=== PATIENT | female | born 1960 | race Caucasian/White ===

== ENCOUNTER 2019-05-08 13:18 | Inpatient (IN) | payer MEDICARE ==
[~2019-05-08] VITALS: Ht 152.4 cm; Wt 80.5 kg
--- OUTSIDE RECORDS SUMMARY | 2019-05-08 13:20 | XMS REPORT | Summary of Care ---
Author Author [facility] - Health Organization [facility] - Health Address Unknown Phone Unavailable Care Team Providers Care Test Preparer Name Role Phone Jenn Loza MD PCP Reason for Visit * Reason Comments Refill Request Encounter Details Care Team Description Date Type Department Jenn Loza MD [address] [place] [id number] Refill Request 01/14/2019 Refill [facility], [address] 4[address] [place] [address] Allergies No Known Allergiesdocumented as of this encounter (statuses as of 01/14/2019) Medications End Date Status Medication Sig Dispensed Refills Start Date Active clopidogrel 75 mg tablet Take 75 mg by 1 mouth daily. 9 Active furosemide 40 mg tablet Take 40 mg by 0 mouth daily. Active sitaGLIPtin (JANUVIA) 100 Take 100 mg 0 mg tabletIndications: by mouth Type 2 diabetes mellitus daily. without complication, with long-term current use of insulin Active metformin ER 500 mg 24 hr Take 500 mg 0 tabletIndications: Type 2 by mouth diabetes mellitus without daily with complication, with breakfast. long-term current use of insulin Active cycloSPORINE (RESTASIS) Place 1 Drop 0 0.05 % drops in both eyes every 12 (twelve) hours. Active Insulin Glargine (LANTUS inject 32 0 SOLOSTAR U-100 INSULIN) Units under 100 unit/mL (3 mL) the skin 2 injectionIndications: (two) times Type 2 diabetes mellitus daily. without complication, with long-term current use of insulin Active insulin lispro, human, inject under 0 100 unit/mL the skin injectionIndications: before meals. Type 2 diabetes mellitus without complication, with long-term current use of insulin Active losartan 50 mg Take 1 tablet 90 tablet 1 tabletIndications: by mouth 9 Essential hypertension daily. Active KCL 10 mEq tablet TAKE 1 TABLET 60 tablet 1 BY MOUTH 9 TWICE A DAY WITH FOOD 01/14/2019 Discontinued KCL 10 mEq tablet Take 1 tablet 1 by mouth 9 daily. documented as of this encounter (statuses as of 01/14/2019) Active Problems Not on filedocumented as of this encounter (statuses as of 01/14/2019) Social History Date Tobacco Use Types Packs/Day Years Used Never Smoker Smokeless Tobacco: Never Used Sex Assigned at Date Recorded Not on file Industry Job Start Date Occupation Not on file Not on file Not on file Travel End Travel History Travel Start No recent travel history available. documented as of this encounter Last Filed Vital Signs Not on filedocumented in this encounter Plan of Treatment Health Maintenance Due Date Last Done Comments HEPATITIS C (HCV) SCREEN 1961 HgA1C 1962 PNEUMOCOCCAL 0-64 YEARS 1967 COMBINED SERIES (1 of 1 - PPSV23) CREATININE (SERUM) 1971 EYE EXAM 1971 LDL-C 1971 URINE MICROALBUMIN 1971 FOOT EXAM 1979 DTaP,Tdap,and Td Vaccines 02/16/1980 (1 - Tdap) PAP SMEAR 1982 MAMMOGRAM 2001 COLONOSCOPY 2011 Zoster Recombinant 2011 Vaccine (SHINGRIX) (1 of 2) INFLUENZA VACCINE (#1) 2019 documented as of this encounter Results Not on filedocumented in this encounter Insurance Type Payer Benefit Subscriber ID Effective Phone Address Plan / Dates Group Medicare MEDICARE MEDICARE xxxxxxxxxxx 2018-P [phone] [address] [id number] [place] [id number] documented as of this encounter
--- OUTSIDE RECORDS SUMMARY | 2019-05-08 13:21 | XMS REPORT ---
Author Author [facility] Address Unknown Phone Unavailable Care Team Providers Care Setter Machine Name Role Phone Unavailable Unavailable Problems This patient has no known problems. Allergies, Adverse Reactions, Alerts This patient has no known allergies or adverse reactions. Medications This patient has no known medications.
--- OUTSIDE RECORDS SUMMARY | 2019-05-08 13:21 | XMS REPORT | Summary of Care ---
Author Author [facility] - Health Organization [facility] - Health Address Unknown Phone Unavailable Care Team Providers Care Shop Foreman Name Role Phone Jenn Loza MD PCP Reason for Visit * Reason Comments Refill Request Encounter Details Care Team Description Date Type Department Jenn Loza MD [address] [place] [id number] Refill Request 02/07/2019 Refill [facility], [address] [place] [address] Allergies No Known Allergiesdocumented as of this encounter (statuses as of 02/08/2019) Medications End Date Status Medication Sig Dispensed [...] mEq tablet TAKE 1 TABLET 60 tablet 3 BY MOUTH 9 TWICE A DAY WITH FOOD 02/07/2019 Discontinued KCL 10 mEq tablet TAKE 1 TABLET 60 tablet 1 BY MOUTH 9 TWICE A DAY WITH FOOD documented as of this encounter (statuses as of 02/08/2019) Active Problems Not on filedocumented as of this encounter (statuses as of 02/08/2019) Social History Date Tobacco Use Types Packs/Day [...] Dates Group Medicare MEDICARE MEDICARE xxxxxxxxxxx 2018-P [phone] [address] resent [id number] [place] [id number] documented as of this encounter
[2019-05-08] MEDS ORDERED: SODIUM CHLORIDE 0.9% 1000ML 1,000 ML IV STA (15:12)
[2019-05-08] MEDS ORDERED: ONDANSETRON HCL INJ 2MG/ML 2ML 2 MG/ML VIAL IV ONE (16:00)
[2019-05-08] MEDS ORDERED: PANTOPRAZOLE 40 MG 10ML VIAL IV ONE (16:00)
[2019-05-08 16:03] LABS: BASOPHILS % 0.5 % (0.0-1.0); EOSINOPHILS % 0.2 % (0.0-6.0); HEMATOCRIT 40.2 % (34.2-44.1); HEMOGLOBIN 12.8 g/dL (12.0-16.0); LYMPHOCYTES # (AUTO) 1.5 (1.0-3.2); LYMPHOCYTES % 16.9 % (18.0-39.1); MEAN CORPUSCULAR HEMOGLOBIN 24.4 pg (28-32); MEAN CORPUSCULAR HGB CONC 31.8 g/dL (31-35); MEAN CORPUSCULAR VOLUME 76.7 fL (81-99); MONOCYTES # (AUTO) 1.1 (0.2-0.8); MONOCYTES % 13.1 % (4.4-11.3); NEUTROPHILS # (AUTO) 5.9 (2.1-6.9); NEUTROPHILS % 68.1 % (38.7-80.0); PLATELET COUNT 358 x10e3/uL (140-360); RED BLOOD COUNT 5.24 x10e6/uL (3.6-5.1); RED CELL DISTRIBUTION WIDTH 14.9 % (11.7-14.4)
[2019-05-08 16:19] LABS: BILIRUBIN,URINE NEGATIVE (NEGATIVE); CLARITY,URINE HAZY (CLEAR); COLOR,URINE YELLOW (YELLOW); KETONES,URINE 2+ (NEGATIVE); LEUKOCYTE ESTERASE ,URINE NEGATIVE (NEGATIVE); NITRITE,URINE NEGATIVE (NEGATIVE); PROTEIN,URINE DIPSTICK 1+ (NEGATIVE); URINE UROBILINOGEN 0.2 mg/dL (0.2 - 1)
--- NOTE | 2019-05-08 16:21 | Diagnostic Imaging Report ---
EXAMINATION: CHEST 2 VIEWS INDICATION: N/V, cough, flu, new onset atrial fibrillation. COMPARISON: None FINDINGS: TUBES and LINES: None. LUNGS: Lungs are moderately inflated. There is bronchial wall thickening. Patchy opacities in the lower lungs, right greater than left. PLEURA: No pleural effusion or pneumothorax. HEART AND MEDIASTINUM: The cardiomediastinal silhouette is unremarkable. There are atherosclerotic calcifications within the aorta. BONES AND SOFT TISSUES: No acute osseous lesion. Soft tissues are unremarkable. UPPER ABDOMEN: No free air under the diaphragm. IMPRESSION: Bronchial wall thickening, which may reflect bronchitis. Patchy opacities in the lower lungs, right greater than left, which may represent pneumonia or atelectasis in the appropriate clinical setting. Suggest follow-up chest radiograph in 6-8 weeks to assess for resolution. Signed by: Dr. Camilla Ramos MD on 05/08/2019 4:18 PM
[2019-05-08 16:22] LABS: INR 0.95; PROTHROMBIN TIME 13.2 seconds (11.9-14.5)
[2019-05-08 16:23] LABS: PARTIAL THROMBOPLASTIN TIME 26.2 seconds (23.8-35.5)
[2019-05-08 16:25] LABS: BACTERIA,URINE FEW /HPF; EPITHELIAL CELLS,URINE MODERATE /LPF; RBC,URINE 0-5 /HPF (0-5); WBC,URINE (MAN) 0-5 /HPF (0-5)
[2019-05-08 16:33] LABS: ALBUMIN 2.8 g/dL (3.5-5.0); ALBUMIN/GLOBULIN RATIO 0.6 (0.8-2.0); ANION GAP 15.2 mmol/L (8-16); CALCIUM 9.1 mg/dL (8.4-10.2); CREATININE, SERUM 1.03 mg/dL (0.57-1.11); MAGNESIUM 2.3 MG/DL (1.3-2.1); POTASSIUM 3.2 mmol/L (3.5-5.1)
[2019-05-08 16:54] LABS: CREATINE KINASE MB 2.8 ng/mL (0-5.0); THYROID STIMULATING HORMONE 0.862 uIU/mL (0.350-4.940)
[2019-05-08] MEDS: CEFTRIAXONE SOD 1 GM/NS 50 ML 50 ML IV SCH (16:58)
[2019-05-08] MEDS: AZITHROMYCIN 500MG/NS 250 ML 250 ML IV SCH (17:03)
[2019-05-08] MEDS: ENOXAPARIN SODIUM INJ 100 MG/ML SYR SC SCH (17:10)
[2019-05-08] MEDS ORDERED: ONDANSETRON HCL INJ 2MG/ML 2ML 2 MG/ML VIAL IV PRN (17:15)
[2019-05-08] MEDS ORDERED: PROMETHAZINE HCL (IM) 25 MG/ML VIAL IV PRN (17:15)
[2019-05-08] MEDS: POTASSIUM CHLORIDE 10MEQ/100ML 100 ML IV SCH ×3 (17:20→21:14)
[2019-05-08 18:28] VITALS: BP 162/72
[2019-05-08 18:36] VITALS: BP 162/72
[2019-05-08 18:37] VITALS: BP 162/72
[2019-05-08] MEDS ORDERED: LANTUS 3ML100 UNITS/ SQ ×2 (18:40)
[2019-05-08] MEDS ORDERED: FUROSEMIDE40 MG PO (18:41)
[2019-05-08] MEDS ORDERED: POTASSIUM CHLO10 ME1 PO (18:41)
[2019-05-08] MEDS ORDERED: LOSARTAN POTASS25 MG PO (18:42)
[2019-05-08] MEDS ORDERED: PLAVIX75 MG PO (18:42)
[2019-05-08] MEDS ORDERED: JANUVIA100 MG PO (18:43)
[2019-05-08] MEDS ORDERED: ASPIR 8181 MG PO (18:43)
[2019-05-08] MEDS ORDERED: METFORMIN HCL500 M2 PO (18:43)
[2019-05-08 19:13] LABS: CREATINE KINASE MB 2.8 ng/mL (0-5.0)
[2019-05-08 20:13] VITALS: BP 166/75
[2019-05-08 21:00] VITALS: BP 166/75
[2019-05-08] MEDS: KCL 20MEQ/.9 SOD CHL 1,000 ML IV SCH (21:13)
[2019-05-09] VITALS (8 sets, daily range): BP systolic 114–163; BP diastolic 60–91
[2019-05-09 02:01] LABS: CREATINE KINASE MB 1.6 ng/mL (0-5.0)
[2019-05-09] MEDS: POTASSIUM CHLORIDE 10MEQ/100ML 100 ML IV SCH (04:25)
[2019-05-09] MEDS: ENOXAPARIN SODIUM INJ 100 MG/ML SYR SC SCH ×2 (04:32→18:19)
[2019-05-09 05:24] LABS: BASOPHILS # (AUTO) 0.1 (0.0-0.1); EOSINOPHILS # (AUTO) 0.1 (0.0-0.4); EOSINOPHILS % 1.4 % (0.0-6.0); HEMATOCRIT 33.6 % (34.2-44.1); HEMOGLOBIN 10.4 g/dL (12.0-16.0); LYMPHOCYTES # (AUTO) 1.9 (1.0-3.2); LYMPHOCYTES % 27.4 % (18.0-39.1); MEAN CORPUSCULAR HEMOGLOBIN 24.5 pg (28-32); MEAN CORPUSCULAR VOLUME 79.1 fL (81-99); MONOCYTES # (AUTO) 1.2 (0.2-0.8); MONOCYTES % 17.8 % (4.4-11.3); NEUTROPHILS # (AUTO) 3.6 (2.1-6.9); NEUTROPHILS % 51.1 % (38.7-80.0); PLATELET COUNT 300 x10e3/uL (140-360); RED BLOOD COUNT 4.25 x10e6/uL (3.6-5.1); RED CELL DISTRIBUTION WIDTH 15.3 % (11.7-14.4)
[2019-05-09 05:51] LABS: ALANINE AMINOTRANSFERASE 24 IU/L (0-55); ALBUMIN 2.2 g/dL (3.5-5.0); ALBUMIN/GLOBULIN RATIO 0.6 (0.8-2.0); ALKALINE PHOSPHATASE 90 IU/L (40-150); ANION GAP 14.3 mmol/L (8-16); BLOOD UREA NITROGEN 10 mg/dL (7-26); BUN/CREATININE RATIO 13 (6-25); CARBON DIOXIDE 21 mmol/L (22-29); CHLORIDE 112 mmol/L (98-107); CHOL/HDL RATIO 4.1 (3.0-3.6); CHOLESTEROL 91 MD/DL (0-199); CREATININE, SERUM 0.79 mg/dL (0.57-1.11); EST GLOMERULAR FILTRATION RATE > 60 ML/MIN (60-); GLUCOSE 98 mg/dL (74-118); HDL CHOLESTEROL 22 MG/DL (40-60); LDL CHOLESTEROL 53 MG/DL (60-130); POTASSIUM 4.3 mmol/L (3.5-5.1); SODIUM 143 mmol/L (136-145); TRIGLYCERIDES 81 MG/DL (0-149)
[2019-05-09 06:03] LABS: CREATINE KINASE MB 1.5 ng/mL (0-5.0)
--- NOTE | 2019-05-09 06:49 | NUR ---
report given to morning nurse. patient is resting comfortably in bed. bed is in lowest position and call villar is within reach. will continue to monitor patient.
--- NOTE | 2019-05-09 07:44 | Diagnostic Imaging Report ---
EXAMINATION: CHEST SINGLE (PORTABLE) COMPARISON: Chest x-ray 05/08/2019 INDICATION: ^PNEUMONIA ^[id number] ^[id number] DISCUSSION: Frontal view of the chest obtained at 0703 hours. HEART AND MEDIASTINUM: The cardiomediastinal silhouette is unremarkable. LINES: None. LUNGS: Increasing bibasilar airspace opacities, right greater than left. No pneumonia or pulmonary edema. PLEURA: No pleural effusion or pneumothorax. BONES AND SOFT TISSUES: No focal osseous lesion. The soft tissues are normal. IMPRESSION: Increasing bibasilar airspace opacities, particularly in the right lung. Pneumonia cannot be excluded Signed by: Dr. Ketan Johnson MD on 05/09/2019 7:40 AM
[2019-05-09] MEDS: KCL 20MEQ/.9 SOD CHL 1,000 ML IV SCH (07:52)
[2019-05-09] MEDS: METOPROLOL TARTRATE 25 MG TAB PO SCH ×2 (15:22→18:19)
[2019-05-09] MEDS: CEFTRIAXONE SOD 1 GM/NS 50 ML 50 ML IV SCH (16:31)
[2019-05-09] MEDS ORDERED: HYDRALAZINE HCL 20 MG/ML VIAL IV PRN (18:00)
[2019-05-09] MEDS: AZITHROMYCIN 500MG/NS 250 ML 250 ML IV SCH (18:18)
--- NOTE | 2019-05-09 19:05 | NUR ---
Received report from day nurse. Patient is resting comfortably in bed. Bed is in lowest position and call villar is within reach. Will continue to monitor patient.
--- NOTE | 2019-05-09 19:50 | Consultation ---
DATE OF CONSULTATION: 05/09/2019 Cardiology Consultation Thank you so much for asking me to see this nice lady in consultation. Ms. Garcia is a pleasant 59-year-old woman, diabetic, sent to the emergency room with continued cough, dyspnea, nausea, and vomiting. HISTORY OF PRESENT ILLNESS: The patient reports she has been ill for 10-14 days with cough and sputum and when she visited her doctor they thought maybe she had atrial fibrillation. They did a nasal swab suggests that she had influenza. She was sent to the emergency room. PAST MEDICAL HISTORY: Significant for diabetes. She is disabled by problems with her legs. She has had surgical debridement of toes and evidently neuropathy. She has a past history of hypertension, diabetes, and possibly previous TIA. She denies knowledge of any cardiac history. She had a remote appendectomy and hernia repair. PERSONAL AND SOCIAL HISTORY: She does not smoke or drink. PHYSICAL EXAMINATION: GENERAL: At this time shows a pleasant, alert woman, who is talkative, oriented. VITAL SIGNS: Blood pressure 158/60, pulse is 80 and regular. HEAD, EYES, EARS, NOSE, AND THROAT: Unremarkable. NECK: No jugular venous distention. THORAX: Heart sounds S1, S2 are equal. No murmurs. There are prematures. ABDOMEN: Normal bowel sounds. EXTREMITIES: No cyanosis, clubbing, or edema. LABORATORY DATA: EKG shows sinus rhythm with PACs and PVCs. Telemetry also shows sinus rhythm with PACs and PVCs. PERTINENT LABORATORY STUDIES: Hemoglobin 12.8 on presentation. Troponins are normal. Chest x-ray suggests possible pneumonia. ASSESSMENT: 1. Pneumonia. 2. Possible influenza. 3. Sinus rhythm with premature atrial contractions and premature ventricular contractions. 4. Diabetes. 5. Hypertension. PLAN: Plan is to just we add a beta mary and we will review echo and maintain telemetry. We will follow closely with you. Thank you for asking me to see her in consultation. MD LAMBERTO Bruner/BERNARD /[id number]
--- NOTE | 2019-05-09 20:20 | Consultation ---
DATE OF CONSULTATION: Cardiology Consultation REASON FOR CONSULTATION: Atrial fibrillation. HISTORY OF PRESENT ILLNESS: This is a 59-year-old woman with a history of diabetes mellitus, hypertension, transient ischemic attack, on Plavix, and possible coronary artery disease, who presented to the emergency department with generalized fatigue and weakness. The patient also was noted to have nausea and vomiting with abdominal discomfort. She was diagnosed with the flu by her PCP and was initiated on treatment. Upon arrival here, she was noted to be in atrial fibrillation with controlled ventricular response. Chest x-ray at that time also showed pneumonia. REVIEW OF SYSTEMS: A 12-point review of systems was conducted, is negative except as stated above in the HPI. PAST MEDICAL HISTORY: As stated above in the HPI. PAST SURGICAL HISTORY: None recent. PAST FAMILY HISTORY: Noncontributory. ALLERGIES: NO KNOWN DRUG ALLERGIES. SOCIAL HISTORY: No illicit drug, alcohol, or tobacco use. MEDICATIONS: See medication reconciliation form . PHYSICAL EXAMINATION: VITAL SIGNS: Temperature is 97.7, heart rate 63, respirations are 20, blood pressure is 162/67, and oxygen saturation is 96% on room air. GENERAL: Well appearing, in no apparent distress. Alert and oriented x3. HEAD: Normocephalic, atraumatic. EYES: Extraocular muscles are intact. Conjunctivae clear. NECK: No JVD. No bruits. CARDIOVASCULAR: She is irregularly irregular. Normal rate. No murmurs. LUNGS: Diminished breath sounds at bases. ABDOMEN: Soft, nontender, nondistended. EXTREMITIES: No clubbing, cyanosis, or edema. VASCULAR: 2+ pulses. SKIN: Warm, dry, and intact. NEUROLOGIC: No focal deficits noted. Cranial nerves grossly intact. PSYCHIATRIC: Normal mood and affect. LABORATORY DATA: Reviewed. Hemoglobin is 10.4, platelets are 300. Creatinine is 0.79. Troponins negative x4. Potassium 4.3, however, was 3.2 on arrival. A 12-lead electrocardiogram showed atrial fibrillation. TELEMETRY: Monitoring reveals atrial fibrillation with controlled ventricular response. IMPRESSION: 1. Atrial fibrillation. 2. Hypertension. 3. Diabetes mellitus. 4. History of transient ischemic attack. 5. Pneumonia. 6. Influenza. RECOMMENDATIONS: The patient has a CHADS-VASc score of 5 for female status, hypertension, diabetes mellitus, and history of transient ischemic attack. The patient started on Lovenox and can transition this to a novel oral anticoagulant such as Eliquis or Xarelto at the time of discharge. Continue infectious treatment per primary team. Resume antihypertensives and check a 2D echocardiogram. DO BOBBY Vick/BERNARD /[id number]
[2019-05-10] VITALS (9 sets, daily range): BP systolic 139–192; BP diastolic 61–93
[2019-05-10] MEDS: ENOXAPARIN SODIUM INJ 100 MG/ML SYR SC SCH ×2 (05:37→17:00)
[2019-05-10 05:45] LABS: BASOPHILS # (AUTO) 0.1 (0.0-0.1); BASOPHILS % 1.6 % (0.0-1.0); EOSINOPHILS # (AUTO) 0.2 (0.0-0.4); EOSINOPHILS % 2.6 % (0.0-6.0); HEMATOCRIT 34.7 % (34.2-44.1); HEMOGLOBIN 10.7 g/dL (12.0-16.0); LYMPHOCYTES # (AUTO) 1.9 (1.0-3.2); LYMPHOCYTES % 31.4 % (18.0-39.1); MEAN CORPUSCULAR HEMOGLOBIN 24.4 pg (28-32); MEAN CORPUSCULAR HGB CONC 30.8 g/dL (31-35); MONOCYTES % 16.3 % (4.4-11.3); NEUTROPHILS # (AUTO) 2.7 (2.1-6.9); NEUTROPHILS % 44.7 % (38.7-80.0); PLATELET COUNT 322 x10e3/uL (140-360); RED BLOOD COUNT 4.39 x10e6/uL (3.6-5.1); RED CELL DISTRIBUTION WIDTH 15.2 % (11.7-14.4)
[2019-05-10 06:04] LABS: ANION GAP 12.6 mmol/L (8-16); BLOOD UREA NITROGEN 10 mg/dL (7-26); BUN/CREATININE RATIO 13 (6-25); CARBON DIOXIDE 21 mmol/L (22-29); CHLORIDE 108 mmol/L (98-107); CREATININE, SERUM 0.78 mg/dL (0.57-1.11); EST GLOMERULAR FILTRATION RATE > 60 ML/MIN (60-); GLUCOSE 179 mg/dL (74-118); MAGNESIUM 2.1 MG/DL (1.3-2.1); PHOSPHORUS 1.9 MG/DL (2.3-4.7); POTASSIUM 3.6 mmol/L (3.5-5.1); SODIUM 138 mmol/L (136-145)
--- NOTE | 2019-05-10 06:18 | NUR ---
Dr Bettencourt notified of routine consultation.
--- NOTE | 2019-05-10 07:03 | NUR ---
report given to day nurse. patient is resting comfortably in bed. bed is in lowest position and call villar is within reach.
--- NOTE | 2019-05-10 07:05 | NUR ---
RCD PT AT BED PT IS ALERT AND ORIENTED PT RESTING ON BED NO SIGNS OF ANY DISTRESS NOTED IV PATENT BY SALINE FLUSH BED LOW AND LOCKED CALL LIGHT IN REACH
[2019-05-10] MEDS: FAMOTIDINE 20 MG TAB PO SCH ×2 (07:30→16:30)
[2019-05-10 08:51] LABS: EOSINOPHILS % (MANUAL) 6 % (0-7); LYMPHOCYTES % (MANUAL) 37 % (19-48); MONOCYTES % (MANUAL) 11 % (3.4-9.0); NEUTROPHILS % (MANUAL) 45 % (40-74)
[2019-05-10 08:57] LABS: PLATELET ESTIMATE ADEQUATE; PLATELET MORPHOLOGY COMMENT NORMAL; RBC MORPHOLOGY COMMENT NORMAL
[2019-05-10] MEDS: METOPROLOL TARTRATE 25 MG TAB PO SCH ×2 (09:00→17:00)
[2019-05-10] MEDS: CLOPIDOGREL BISULFATE 75 MG TAB PO SCH (09:00)
[2019-05-10] MEDS ORDERED: METFORMIN HCL 500 MG TAB CR PO SCH (09:00)
[2019-05-10] MEDS: LOSARTAN POTASSIUM 25 MG TAB PO SCH (09:00)
[2019-05-10] MEDS: POTASSIUM CHLORIDE 10MEQ EA PO SCH (09:00)
[2019-05-10] MEDS: ASPIRIN 81 MG CHEW TAB PO SCH (09:00)
[2019-05-10] MEDS: SITAGLIPTIN 100 MG TAB PO SCH (09:00)
[2019-05-10] MEDS: GUAIFENESIN 600MG/DEXTROMETHORPHAN 30MG TABSR PO SCH ×2 (11:30→20:54)
[2019-05-10] MEDS ORDERED: POTASSIUM PHOSPHATE 20 MM in SODIUM CHLORIDE 0.9% 250ML 250 ML IV ONE (11:45)
[2019-05-10] MEDS: ALBUTEROL/IPRATROPIUM 3 ML NEB NEB SCH ×2 (14:35→19:00)
--- NOTE | 2019-05-10 16:32 | Consultation ---
DATE OF CONSULTATION: Pulmonary Critical Care Consultation CHIEF COMPLAINT: Cough, congestion, and pulmonary infiltrate. HISTORY OF PRESENT ILLNESS: The patient is a 59-year-old woman. She has a history of diabetes and hypertension. She has noted persistent cough over the past several weeks. Her cough was productive of small amounts of phlegm. She went to see a primary physician and was diagnosed with the flu. She received treatment, but did not improve. She subsequently came to the emergency department. She has since received antibiotics and bronchodilators and feels better. PAST SURGICAL HISTORY: 1. Status post appendectomy. 2. Status post inguinal hernia repair. PAST MEDICAL HISTORY: 1. Hypertension. 2. Diabetes. SOCIAL HISTORY: The patient has never been a smoker. She is not a drinker. She has no recent travel. ALLERGIES: THERE ARE NO KNOWN DRUG ALLERGIES. FAMILY HISTORY: Family history is noncontributory. REVIEW OF SYSTEMS: The patient is afebrile. She may have had some fevers previously. She has no headache. She has no neck pain. She does have some cough. She has no chest pain. She has no wheezing. She has no abdominal pain. She has some vomiting. She has no leg edema. She has no focal neurological complaints. PHYSICAL EXAMINATION: VITAL SIGNS: The patient is afebrile. The blood pressure is 174/93. The pulse is 62 and the saturation is 98%. HEENT: Shows no facial swelling or erythema. CARDIAC: Reveals regular rate and rhythm with normal S1 and S2. There are no murmurs or rubs. LUNGS: Auscultation of lungs shows clear breath sounds bilaterally. There is no wheezing. ABDOMEN: Soft and nontender. There is no rebound or guarding. EXTREMITIES: Shows no leg edema or calf tenderness. There is no cyanosis or clubbing. SKIN: Shows no rashes. NEUROLOGICAL: Shows no focal abnormalities. LABORATORY DATA: White blood cell count is 6.09 and hemoglobin is 10.7. The platelet count is 322. BUN to creatinine ratio is 10 to 0.78. Other electrolytes are within normal limits. RADIOGRAPHIC DATA: Chest x-ray shows bibasilar airspace opacities. IMPRESSION: 1. Community-acquired pneumonia. 2. Hypertension. 3. Diabetes. 4. Atrial fibrillation. PLAN: 1. Continue Rocephin and Zithromax. 2. CT scan of chest. 3. Await further evaluation by Cardiology. MD ALIYA Brennan/BERNARD /[id number]
[2019-05-10] MEDS: CEFTRIAXONE SOD 1 GM/NS 50 ML 50 ML IV SCH (17:00)
[2019-05-10] MEDS: AZITHROMYCIN 500MG/NS 250 ML 250 ML IV SCH (17:00)
--- NOTE | 2019-05-10 17:50 | Diagnostic Imaging Report ---
CT of the chest, with contrast History: Pneumonia. Comparison: Chest radiographs dated 05/08/2019 and 05/09/2019. Technique: Multidetector CT scanning of the chest was performed from the level of the thoracic inlet to the upper abdomen with IV contrast Dose reduction: The examination was performed according to departmental dose-optimization program which includes automated exposure control, adjustment of the mA and/or kV according to patient size and/or use of iterative reconstruction technique. Findings: The visualized portions of the thyroid gland are within normal limits. There is no axillary the heart is within normal limits of size. Coronary artery calcifications are noted. There is no pericardial effusion. Thoracic aorta is of normal course and caliber. The trachea and central airways are patent. The pulmonary artery is normal caliber. While this study is not tailored for the detection of pulmonary embolism no filling defects are identified to suggest acute pulmonary embolus. Patchy areas of consolidation are present in both lungs and are most pronounced in the right lower lobe. Findings are concerning for multifocal pneumonia. There is no evidence of cavitation. There is no pleural effusion. There is no pneumothorax. Limited evaluation of the upper abdomen demonstrates no hepatic lesions in the visualized portions of the liver. The spleen is within normal limits. The bilateral adrenal glands are unremarkable. No acute osseous abnormalities are identified. IMPRESSION: Patchy opacities throughout both lungs which are most pronounced in the right lower lobe. Findings are concerning for multifocal pneumonia. Recommend follow-up CT after course of treatment to document resolution. Signed by: Marcio Ramirez MD on 05/10/2019 5:46 PM
--- NOTE | 2019-05-10 19:00 | NUR ---
PT RESTING ON BED BED SIDE REPORT GIVEN TO ONCOMING NURSE
--- NOTE | 2019-05-10 19:05 | NUR ---
Nutrition Screen Note RD Recommendation for Physician: -Continue ADA diet Plan of Care: RD following, monitoring for tolerance and adequacy Nutrition reason for involvement: MST Primary Diagnose(s): dehydration, hypokalemia, new onset atrial fibrillation, pneumonia, and vomiting PMH: diabetes, HTN, TIA, and possible CAD Ht: 60 in Wt:177.5 lb BMI: 34.7 kg/m2 IBW: [address] Assessment: (05/10/19) Chart reviewed. Labs and meds reviewed. Pt is a 59 year old female admitted with dehydration, hypokalemia, new onset atrial fibrillation, pneumonia, and vomiting. Pt stated her appetite has been good and eating >50% of meals during admission. Prior to admission, pt reported a decreased appetite for 1 week and was mainly consuming pudding. Pt reported she had weighed 182 lbs a week ago. Pt currently has a wt of 177 lbs in chart. If accurate, this would be a 3% wt loss in 1 week severe wt loss. No N/V/D/C or chewing/swallowing issues noted. Will continue to monitor. Current Diet: 1800 kcal ADA diet Malnutrition Evaluation (05/10/19) The patient does not meet criteria for a specified degree of malnutrition at this time. Will re-evaluate at follow-up as appropriate. Diet Education Needs Assessment: Pt was not interested in diet education at time of visit. Nutrition Care Level: low Signed: Yocasta Giraldo, RD, LD
--- NOTE | 2019-05-10 19:05 | NUR ---
Received patient awake on bed, not in distress, no complaints of pain at this time. Call light within easy reached, advised to call anytime as needed. Will continue to monitor
[2019-05-10] MEDS ORDERED: IOPAMIDOL 370 MG/ML 200 ML INFUS..BTL INJ ONE (19:55)
[2019-05-10] MEDS ORDERED: SODIUM CHLORIDE 0.9% 50ML 50 ML ONE (19:55)
[2019-05-11] VITALS (8 sets, daily range): BP systolic 148–174; BP diastolic 64–89
[2019-05-11] MEDS: ALBUTEROL/IPRATROPIUM 3 ML NEB NEB SCH ×4 (01:00→20:25)
[2019-05-11 03:41] LABS: BASOPHILS # (AUTO) 0.1 (0.0-0.1); BASOPHILS % 1.4 % (0.0-1.0); EOSINOPHILS # (AUTO) 0.2 (0.0-0.4); EOSINOPHILS % 2.7 % (0.0-6.0); HEMATOCRIT 35.1 % (34.2-44.1); HEMOGLOBIN 10.9 g/dL (12.0-16.0); LYMPHOCYTES # (AUTO) 2.2 (1.0-3.2); MEAN CORPUSCULAR HEMOGLOBIN 24.1 pg (28-32); MEAN CORPUSCULAR HGB CONC 31.1 g/dL (31-35); MEAN CORPUSCULAR VOLUME 77.5 fL (81-99); MONOCYTES # (AUTO) 1.1 (0.2-0.8); MONOCYTES % 14.1 % (4.4-11.3); NEUTROPHILS # (AUTO) 3.7 (2.1-6.9); NEUTROPHILS % 48.7 % (38.7-80.0); PLATELET COUNT 418 x10e3/uL (140-360); RED BLOOD COUNT 4.53 x10e6/uL (3.6-5.1); RED CELL DISTRIBUTION WIDTH 15.1 % (11.7-14.4)
[2019-05-11 04:08] LABS: ANION GAP 12.8 mmol/L (8-16); BLOOD UREA NITROGEN 8 mg/dL (7-26); BUN/CREATININE RATIO 10 (6-25); CALCIUM 8.3 mg/dL (8.4-10.2); CARBON DIOXIDE 21 mmol/L (22-29); CHLORIDE 110 mmol/L (98-107); CREATININE, SERUM 0.84 mg/dL (0.57-1.11); EST GLOMERULAR FILTRATION RATE > 60 ML/MIN (60-); GLUCOSE 222 mg/dL (74-118); PHOSPHORUS 2.4 MG/DL (2.3-4.7); POTASSIUM 3.8 mmol/L (3.5-5.1); SODIUM 140 mmol/L (136-145)
[2019-05-11] MEDS: ENOXAPARIN INJ 80 MG/0.8 ML SYR SC SCH ×2 (05:12→17:30)
[2019-05-11] MEDS ORDERED: MELATONIN 5 MG TABLET PO PRN (05:45)
[2019-05-11] MEDS ORDERED: ACETAMINOPHEN/CODEINE 300MG - 30MG TAB PO PRN (05:45)
[2019-05-11] MEDS ORDERED: ACETAMINOPHEN 325 MG TAB PO PRN (05:45)
[2019-05-11] MEDS: GUAIFENESIN/DEXTROMETHORPHAN LIQD 5 ML UDC PO SCH ×3 (05:56→18:00)
[2019-05-11] MEDS ORDERED: DEXTROSE 50% SYRINGE 50 ML IV PRN (08:15)
[2019-05-11] MEDS: METFORMIN HCL 500 MG TAB CR PO SCH (09:00)
[2019-05-11] MEDS: AMLODIPINE BESYLATE 10 MG TAB PO SCH ×2 (09:00→17:20)
[2019-05-11] MEDS: POTASSIUM CHLORIDE 10MEQ EA PO SCH (09:00)
[2019-05-11] MEDS: ASPIRIN 81 MG CHEW TAB PO SCH (09:00)
[2019-05-11] MEDS: SITAGLIPTIN 100 MG TAB PO SCH (09:00)
[2019-05-11] MEDS: CLOPIDOGREL BISULFATE 75 MG TAB PO SCH (09:00)
[2019-05-11] MEDS: FAMOTIDINE 20 MG TAB PO SCH ×2 (09:00→17:30)
[2019-05-11] MEDS: FUROSEMIDE 40 MG TAB PO SCH (09:00)
[2019-05-11] MEDS: LOSARTAN POTASSIUM 25 MG TAB PO SCH (09:00)
[2019-05-11] MEDS: METOPROLOL TARTRATE 25 MG TAB PO SCH (09:10)
[2019-05-11] MEDS: INSULIN GLARGINE 100 UNITS/ML VIAL SQ SCH ×2 (09:45→21:11)
[2019-05-11] MEDS: INSULIN REGULAR, HUMAN 100 UNIT/1 ML 3ML VIAL SQ SCH ×3 (11:30→21:09)
[2019-05-11] MEDS ORDERED: METOPROLOL TARTRATE 25 MG TAB PO NR (12:00)
[2019-05-11] MEDS ORDERED: METOPROLOL TARTRATE 25 MG TAB PO SCH (17:00)
[2019-05-11] MEDS: CEFTRIAXONE SOD 1 GM/NS 50 ML 50 ML IV SCH (17:30)
[2019-05-11] MEDS: METOPROLOL TARTRATE 50 MG TAB PO SCH (17:30)
[2019-05-11] MEDS: AZITHROMYCIN 500MG/NS 250 ML 250 ML IV SCH ×2 (18:17→18:27)
--- NOTE | 2019-05-11 18:34 | Progress Note ---
DATE: SUBJECTIVE: The patient is doing better. She does not complain of dyspnea or cough. PHYSICAL EXAMINATION: VITAL SIGNS: Stable. HEENT: Shows no facial swelling or erythema. CARDIAC: Reveals regular rate and rhythm with normal S1 and S2. There are no murmurs or rubs. LUNGS: Auscultation of lungs reveals clear breath sounds bilaterally. There is no wheezing. ABDOMEN: Soft and nontender. There is no rebound or guarding. EXTREMITIES: Shows no leg edema or calf tenderness. There is no cyanosis. IMPRESSION: 1. Community-acquired pneumonia. 2. Atrial fibrillation. 3. Hypertension. 4. Diabetes. PLAN: 1. Switch to p.o. antibiotics. 2. Monitor blood sugars closely. 3. Complete Cardiology evaluation. 4. Possible discharge home tomorrow. Mukund Bettencourt MD [facility]/BERNARD /[id number]
[2019-05-11] MEDS ORDERED: INSULIN GLARGINE SQ SCH (21:00)
[2019-05-12] VITALS: BP 139/87
[2019-05-12] MEDS: GUAIFENESIN/DEXTROMETHORPHAN LIQD 5 ML UDC PO SCH ×2 (00:25→05:19)
[2019-05-12] MEDS: ALBUTEROL/IPRATROPIUM 3 ML NEB NEB SCH ×2 (01:00→08:03)
[2019-05-12 02:51] LABS: BASOPHILS # (AUTO) 0.1 (0.0-0.1); BASOPHILS % 1.5 % (0.0-1.0); EOSINOPHILS # (AUTO) 0.3 (0.0-0.4); EOSINOPHILS % 3.4 % (0.0-6.0); HEMOGLOBIN 10.7 g/dL (12.0-16.0); LYMPHOCYTES # (AUTO) 2.6 (1.0-3.2); LYMPHOCYTES % 30.3 % (18.0-39.1); MEAN CORPUSCULAR HEMOGLOBIN 24.4 pg (28-32); MEAN CORPUSCULAR HGB CONC 31.5 g/dL (31-35); MEAN CORPUSCULAR VOLUME 77.4 fL (81-99); MONOCYTES # (AUTO) 1.2 (0.2-0.8); NEUTROPHILS % 45.4 % (38.7-80.0); PLATELET COUNT 447 x10e3/uL (140-360); RED BLOOD COUNT 4.39 x10e6/uL (3.6-5.1)
[2019-05-12 03:08] LABS: ANION GAP 12.4 mmol/L (8-16); BLOOD UREA NITROGEN 8 mg/dL (7-26); BUN/CREATININE RATIO 10 (6-25); CALCIUM 8.4 mg/dL (8.4-10.2); CARBON DIOXIDE 23 mmol/L (22-29); CHLORIDE 111 mmol/L (98-107); CREATININE, SERUM 0.78 mg/dL (0.57-1.11); EST GLOMERULAR FILTRATION RATE > 60 ML/MIN (60-); GLUCOSE 133 mg/dL (74-118); MAGNESIUM 2.1 MG/DL (1.3-2.1); POTASSIUM 3.4 mmol/L (3.5-5.1); SODIUM 143 mmol/L (136-145)
[2019-05-12 04:00] VITALS: BP 163/73
[2019-05-12] MEDS: ENOXAPARIN INJ 80 MG/0.8 ML SYR SC SCH (05:19)
[2019-05-12] MEDS ORDERED: POTASSIUM CHLORIDE 20 MEQ TAB CR PO STA (05:48)
[2019-05-12] MEDS ORDERED: ZITHROMAX500 MG PO (05:51)
[2019-05-12] MEDS ORDERED: METOPROLOL TART50 MG PO (05:51)
[2019-05-12] MEDS ORDERED: NORVASC10 MG PO (05:51)
[2019-05-12] MEDS ORDERED: CEFDINIR300 MG PO (05:51)
[2019-05-12] MEDS: INSULIN REGULAR, HUMAN 100 UNIT/1 ML 3ML VIAL SQ SCH (07:30)
--- NOTE | 2019-05-12 08:34 | NUR ---
IMM letter delivered and explained to pt. She verbalized understanding. States she's ready to go home. Signed copy placed in chart. Copy to pt. CM business card left with pt for any questions/concerns.
[2019-05-12 08:35] VITALS: BP 163/73
[2019-05-12] MEDS: FUROSEMIDE 40 MG TAB PO SCH (08:53)
[2019-05-12] MEDS: POTASSIUM CHLORIDE 10MEQ EA PO SCH (08:53)
[2019-05-12] MEDS: SITAGLIPTIN 100 MG TAB PO SCH (08:53)
[2019-05-12] MEDS: ASPIRIN 81 MG CHEW TAB PO SCH (08:53)
[2019-05-12] MEDS: METFORMIN HCL 500 MG TAB CR PO SCH (08:53)
[2019-05-12] MEDS: FAMOTIDINE 20 MG TAB PO SCH (08:53)
[2019-05-12] MEDS: LOSARTAN POTASSIUM 25 MG TAB PO SCH (08:53)
[2019-05-12] MEDS: METOPROLOL TARTRATE 50 MG TAB PO SCH (08:54)
[2019-05-12] MEDS: INSULIN GLARGINE 100 UNITS/ML VIAL SQ SCH (08:54)
[2019-05-12] MEDS: CLOPIDOGREL BISULFATE 75 MG TAB PO SCH (08:54)
[2019-05-12] MEDS: AMLODIPINE BESYLATE 10 MG TAB PO SCH (08:54)
[2019-05-12 09:00] VITALS: BP 168/72
[2019-05-12 09:55] VITALS: BP 168/72
--- NOTE | 2019-05-14 04:47 | Discharge Summary ---
ADMISSION DIAGNOSES: 1. Nausea and vomiting with dehydration. 2. Bacterial community-acquired pneumonia, present on admission. 3. New onset atrial fibrillation. 4. Hypokalemia. 5. Type 2 diabetes. 6. Hypertension. DISCHARGE DIAGNOSES: 1. Nausea and vomiting with dehydration. 2. Bacterial community-acquired pneumonia, present on admission. 3. New onset atrial fibrillation. 4. Hypokalemia. 5. Type 2 diabetes. 6. Hypertension. HISTORY: Hypertension, type 2 diabetes, CAD, and possible TIA. SURGICAL HISTORY: Appendectomy, inguinal hernia repair, and left foot pinky toe amputation. FAMILY HISTORY: The patient is unaware of family history, as she is adopted. SOCIAL HISTORY: Noncontributory. HOSPITAL COURSE: A 59-year-old female with bronchitis 3 weeks ago, which went away after Z-German, admits with a history of 5 days of nonproductive cough with nausea and vomiting. During the week, she has been unable to eat and drink. She denies bad food exposure or contact with sick individuals. On 05/03, she saw her PCP and was given amoxicillin after being positive for flu. On admission, she was started on IV fluids, Zithromax, and Rocephin. Chest x-ray showed bronchial wall thickening, which may reflect bronchitis. Patchy opacities in the lower lungs, right greater than left, which may represent pneumonia. CT of the chest showed patchy opacity throughout both lungs, which are most pronounced in the right lower lobe. Pulmonology was consulted as well as Cardiology. Her EKG in the ER appeared to be atrial fibrillation 82, but per Cardiology, he believes it was sinus rhythm with PACs and PVCs. The patient was started on metoprolol by another supervisor powdered sugar before her supervisor powdered sugar was consulted. Urine culture negative. Blood culture negative. TSH was within normal limits. After few days of IV antibiotics, the patient is feeling much better. She will discharge home with new prescription for Norvasc, metoprolol, Omnicef, and Zithromax. She was already taking aspirin at home and since her supervisor powdered sugar does not believe she had atrial fibrillation, there is no need for anticoagulation. The patient will discharge home and follow up with primary care in 1 to 2 weeks. Vital signs are stable. The patient is afebrile. Dictated by Deandra Medina NP MD AMBROSE Duong/BERNARD /[id number]
== END 2019-05-12 10:09 | disposition home or self-care (01) | DRG 194 ==
LOC: ER 13:18 → ERHOLD 17:15 → MED/SURG2 18:10
PROVIDERS: ADMIT Internal Medicine; ATTEND Internal Medicine
DX: J15.9 Unspecified bacterial pneumonia (principal); I50.22 Chronic systolic (congestive) heart failure; E11.9 Type 2 diabetes mellitus without complications; I48.91 Unspecified atrial fibrillation; E86.0 Dehydration; I49.3 Ventricular premature depolarization; Z86.73 Personal history of transient ischemic attack (TIA), and cerebral infarction without residual deficits; E83.39 Other disorders of phosphorus metabolism; E66.9 Obesity, unspecified; Z68.34 Body mass index [BMI] 34.0-34.9, adult; I11.0 Hypertensive heart disease with heart failure
CPT/HCPCS: 36415; 71045; 71046; 71260; 80048; 80053; 80061; 81001; 82550; 82553; 82948; 83036; 83735; 83880; 84100; 84443; 84484; 85025; 85610; 85730; 87040; 87086; 87400; 93005; 93306; 94640; 99284; J0360; J0456; J0696; J1650; J1815; J1817; J2405; J3480; J7030; J7050; Q9967

== ENCOUNTER → 2019-07-22 | Day surgery (SDC) | payer MEDICARE ==
[2019-07-19 16:29] LABS: BASOPHILS # (AUTO) 0.2 (0.0-0.1); BASOPHILS % 2.1 % (0.0-1.0); EOSINOPHILS # (AUTO) 0.7 (0.0-0.4); EOSINOPHILS % 7.5 % (0.0-6.0); HEMATOCRIT 36.4 % (34.2-44.1); HEMOGLOBIN 11.5 g/dL (12.0-16.0); LYMPHOCYTES # (AUTO) 2.8 (1.0-3.2); LYMPHOCYTES % 28.9 % (18.0-39.1); MEAN CORPUSCULAR HEMOGLOBIN 23.9 pg (28-32); MEAN CORPUSCULAR HGB CONC 31.6 g/dL (31-35); MEAN CORPUSCULAR VOLUME 75.7 fL (81-99); MONOCYTES # (AUTO) 1.1 (0.2-0.8); MONOCYTES % 11.6 % (4.4-11.3); NEUTROPHILS # (AUTO) 4.7 (2.1-6.9); NEUTROPHILS % 48.7 % (38.7-80.0); PLATELET COUNT 430 x10e3/uL (140-360); RED BLOOD COUNT 4.81 x10e6/uL (3.6-5.1); RED CELL DISTRIBUTION WIDTH 15.1 % (11.7-14.4)
[2019-07-19 16:47] LABS: INR 0.9; PROTHROMBIN TIME 12.7 seconds (11.9-14.5)
[2019-07-19 16:48] LABS: PARTIAL THROMBOPLASTIN TIME 25.4 seconds (23.8-35.5)
[2019-07-19 16:54] LABS: ANION GAP 15.4 mmol/L (8-16); CALCIUM 9.3 mg/dL (8.4-10.2); CREATININE, SERUM 1.03 mg/dL (0.57-1.11); POTASSIUM 4.4 mmol/L (3.5-5.1)
--- NOTE | 2019-07-19 16:55 | Diagnostic Imaging Report ---
EXAMINATION: CHEST 2 VIEWS INDICATION: Pre-operative COMPARISON: None FINDINGS: LINES/TUBES:None LUNGS:The lungs are mildly hyperinflated. No focal consolidation or pulmonary edema. PLEURA:No pleural effusion or pneumothorax. MEDIASTINUM:The cardiomediastinal silhouette appears normal in size and shape. BONES/SOFT TISSUES:No acute osseous injury. ABDOMEN:No free air under the diaphragm. IMPRESSION: No focal pneumonia or pulmonary edema. Signed by: Dianelys Delacruz MD on 07/19/2019 4:52 PM
[~2019-07-22] VITALS: Ht 152.4 cm; Wt 82.6 kg
[2019-07-22] VITALS (15 sets, daily range): BP systolic 140–166; BP diastolic 49–77
[~2019-07-22] MED LIST: ASPIR 8181 MG PO; CEFDINIR300 MG PO; DIPHENHYDRAMINE HCL INJ 50 MG/ML VIAL ONE; FENTANYL CITRATE/PF 100MCG/2 ML INJ ONE; FUROSEMIDE40 MG PO; HEPARIN SOD (PORCINE) 1000 UNIT/ML 30ML ONE; HEPARIN SOD/SOD CHLORIDE 2,000 ML ONE; HUMALOG100 UNIT/3 SC; IOPAMIDOL 370 MG/ML 200 ML INFUS..BTL INJ ONE; JANUVIA100 MG PO; LABETALOL HCL 20 ML ONE; LANTUS 3ML100 UNITS/ SQ; LIDOCAINE HCL 2% LOCAL 20 ML VIAL ONE; LOSARTAN POTAS100 MG PO; LOSARTAN POTASS25 MG PO; METFORMIN HCL500 M2 PO; METOPROLOL SUCC50 MG PO; METOPROLOL TART50 MG PO; MIDAZOLAM HCL 2 MG/2 ML VIAL ONE; NITROGLYCERIN/D5W 200 MCG/ML 0 ML ONE; NORVASC10 MG PO; PLAVIX75 MG PO; POTASSIUM CHLO10 ME1 PO; RESTASIS1 EACH OP; SODIUM CHLORIDE 0.9% 1000ML 1,000 ML ONE; ZITHROMAX500 MG PO
--- NOTE | 2019-07-22 10:46 | NUR ---
1046 Pt Received Rm #9 Identifierx2 Bedside Report from RUPERTO Butler. Identfierx2. Back to baseline orientation.Oriented and appropriate.PERRLA,respirations even and unlabored on RA.Pulsesx4 PPx4PT/DP and marked.Cap refll brisk<3 sec. Rt Groin sheath in place.No gross issues pain,pallor,pressure or dysrthmia.Monitor atrial fib. Skin warm and dry, integrity appears intact. IVg#20 in left arm .Presents healthy w/o s/s of infiltration or complaint.Abdomen soft and supple,pt offered toileting,denies need to urinate or defecate. No personal affects with patient. Family at bedside. Pt and family verbalize understanding of care. Currently w/o pain or need. ds/rn
--- NOTE | 2019-07-22 10:50 | NUR ---
1050am Chris Cath technologist at bedside.RN Maddie at standby. Held pressure 20min. No gross issues pain pallor or dysrhythmia. Tegederm dressing with wedge PPx4 toes fidelina well.Down time 230pm Ride phoned and jessi arrive at 430pm. Denies CP or SOB. Dr Hermosillo will surgical consult to [facility] CD and teaching given to pt regarding f/o care. reyes/magy
--- NOTE | 2019-07-22 11:55 | History and Physical ---
FAMILY PHYSICIAN: Dr. Loza. HISTORY OF PRESENT ILLNESS: Ms. Garcia is a pleasant 59-year-old diabetic, who is admitted at this time for further evaluation of abnormal stress test suggesting underlying coronary artery disease. PAST MEDICAL HISTORY: Significant for recent hospitalization at [facility] for influenza pneumonia in May of 2019, where she was noted to have PACs and PVCs. She has stress test in my office on July 09, which suggested inferior-posterior ischemia. She does not have chest pains. Past medical history also significant for longstanding type 2 adult onset diabetes, diabetic neuropathy, longstanding hypertension, and possibly remote TIA. PAST SURGICAL HISTORY: She had remote appendectomy, remote hernia repair, and remote surgical debridement of toes. MEDICATIONS: Her recent home medications include Lantus SoloSTAR 32 units twice a day, Humalog KwikPen 12 units in the afternoon and 14 units at night, furosemide 40 mg daily, potassium chloride 10 mEq daily, Clopidogrel 75 mg daily, Januvia 100 mg daily, metformin ER 500 mg once a day, Restasis eye drops, Shailesh aspirin enteric-coated 81 mg daily, losartan 100 mg daily, and metoprolol succinate ER 50 mg daily. PERSONAL AND SOCIAL HISTORY: She does not smoke or drink. Her last year after influenza pneumonia. PHYSICAL EXAMINATION: GENERAL: At this time shows a pleasant, alert woman, who is about 5 feet tall and weight 186 pounds. VITAL SIGNS: Blood pressure 154/54. HEAD, EYES, EARS, NOSE, AND THROAT: Unremarkable. NECK: No jugular venous distention. No bruits. THORAX: Heart sounds S1 and S2 are equal. No murmurs. LUNGS: Clear. ABDOMEN: Protuberant. EXTREMITIES: No cyanosis, clubbing, or edema. Stress test abnormal as above. ASSESSMENT: 1. Possible underlying coronary artery disease. 2. Type 2 adult onset diabetes. 3. Hypertension. PLANS: We will check lipid profile and perform left heart catheterization with further management based on results of study. MD LAMBERTO Bruner/MODL /[id number]
--- NOTE | 2019-07-22 15:00 | NUR ---
1500 up to bathroom void qs .No gross issues pain ,pallor pressure or dysrhythmia. Awaiting ride pickup ar 430pm. Vs stable . No c/o Cp opr SOB ds/rn
--- NOTE | 2019-07-22 16:30 | NUR ---
1630pm [employer] DISCHARGE NURSING NOTE Pt meets DC criteria. Rt groin assessed for s/s of complication and presence of hematoma. Skin warm, dry, no discolor, and pulses present. IV removed from left hand. Distal tip appears intact. VS WNL. Pt denies pain, sob, or need at this time. 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 Review of discharge paperwork and follow up instructions. verbalized understanding. Pt to wheelchair and transported to front of hospital. Transferred to private vehicle under own strength w/o incident with DC paperwork in hand. - reyes/magy
--- NOTE | 2019-07-22 17:27 | Operative Report ---
DATE OF PROCEDURE: 07/22/2019 SURGEON: Shay Hermosillo MD TITLE OF PROCEDURE: Left heart catheterization. INDICATIONS: Ms. Garcia is a pleasant, diabetic, hypertensive with recent abnormal stress test. 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 The right groin was prepped with scrub and 2% xylocaine and 4-Honduran sheath placed in the right common femoral artery. Cardiac cath performed with a 4-Honduran pigtail, 4-Honduran right Sascha, and 4-Honduran left Sascha catheters. Inspections of films show that the left ventricle has mild inferior hypokinesis. Estimated ejection fraction 45%. The right coronary artery is a dominant vessel, but has diffuse disease proximally 60% and 99% stenosis. The acute marginal also has a 99% stenosis. More distally, the vessel has minimal disease. The left main is a large vessel that provides LAD with severe proximal disease about 99% stenosis. More distally, the lumen is only slightly irregular. The first vessel of the circumflex is actually not obtuse marginal. Both follows the course of the ramus distribution without significant disease. Circumflex has a proximal 90% stenosis in its proximal portion before small obtuse marginal and 2nd obtuse marginal is a large vessel with about 50% stenosis in its proximal portion. Additionally, the left internal mammary artery is injected, which is a large unremarkable vessel. The patient given a total of 20 mg of labetalol IV during the procedure. The catheters and sheath were removed, pressure held, and she is sent to her room in stable condition. No complications. No blood loss. FINAL IMPRESSION: 1. Severe three-vessel coronary artery disease as above. 2. Abnormal left ventricular function with mild inferior hypokinesis. Estimated ejection fraction 45%. 3. No mitral regurgitation seen. 4. Plan is recommend coronary artery bypass graft surgery with grafts to the LAD, OM2 and the posterior descending. MD LAMBERTO Bruner/MODL /[id number]
== END | disposition home or self-care (01) ==
LOC: CATH LAB 08:27
PROVIDERS: ATTEND Internal Medicine Cardiovascular Disease
DX: I25.10 Atherosclerotic heart disease of native coronary artery without angina pectoris (principal); I49.1 Atrial premature depolarization; I49.3 Ventricular premature depolarization; R94.39 Abnormal result of other cardiovascular function study; I10 Essential (primary) hypertension; E11.9 Type 2 diabetes mellitus without complications; Z01.810 Encounter for preprocedural cardiovascular examination; Z01.812 Encounter for preprocedural laboratory examination; Z01.818 Encounter for other preprocedural examination; Z79.84 Long term (current) use of oral hypoglycemic drugs; Z79.02 Long term (current) use of antithrombotics/antiplatelets; Z79.82 Long term (current) use of aspirin; Z79.4 Long term (current) use of insulin; Z68.36 Body mass index [BMI] 36.0-36.9, adult
CPT/HCPCS: 36415; 71046; 80048; 85025; 85610; 85730; 86850; 86900; 93005; 93458; C1766; J1200; J2001; J2250; J3490; J7030; Q9967; J1644; J3010